=== PATIENT | female | born 1985 | race Caucasian/White ===

== ENCOUNTER → 2024-11-30 10:43 | Outpatient (REF) | payer BC, SELFPAY | LOC: RAD 10:43 | PROVIDERS: ATTENDING PHYSICIAN Radiology Diagnostic Radiology | DX: Z01.818 Encounter for other preprocedural examination (principal) | CPT/HCPCS: 70030 ==

== ENCOUNTER → 2024-12-07 15:25 | Outpatient (REF) | payer BC, SELFPAY | LOC: PAVMRI 15:25 | PROVIDERS: ATTENDING PHYSICIAN Internal Medicine | DX: M79.604 Pain in right leg (principal) | CPT/HCPCS: 72148 ==